=== PATIENT | male | born 1965 | race Caucasian/White ===

== ENCOUNTER 2017-01-06 21:04 | Emergency (ER) | payer OTHER ==
[2017-01-06] MEDS ORDERED: Fluorescein Opthalmic Strip ONE (21:14)
[2017-01-06] MEDS ORDERED: Proparacaine 0.5% Opth 15 ML BOT ONE (21:14)
[2017-01-06] MEDS ORDERED: Ondansetron HCl/PF 4 MG/2 ML Vial ONE (21:22)
[2017-01-06] MEDS ORDERED: Adacel (T-DAP) 0.5 ML VIAL ONE (21:36)
[2017-01-06] MEDS ORDERED: Bacitracin Zinc 1 Packet ONE ×2 (21:56→22:03)
== END 2017-01-06 22:22 | disposition home or self-care (01) ==
LOC: ERS 21:04
DX: T20.20XA Burn of second degree of head, face, and neck, unspecified site, initial encounter (principal); T22.121A Burn of first degree of right elbow, initial encounter; I10 Essential (primary) hypertension; E11.9 Type 2 diabetes mellitus without complications; X08.8XXA Exposure to other specified smoke, fire and flames, initial encounter; Y92.511 Restaurant or cafe as the place of occurrence of the external cause
CPT/HCPCS: 90471; 90715; 96361; 96374; 96375; J2270; J2405